=== PATIENT | male | born 2000 | race African-American/Black ===

== ENCOUNTER 2023-05-01 12:24 | Emergency (ER) | payer SELFPAY ==
--- OUTSIDE RECORDS SUMMARY | 2023-05-01 12:28 | XMS REPORT | Continuity of Care Document ---
:2000 Author Organization [facility] t Address [address] [facility] [address] [place] [address] Care Team Providers Name Role Phone CHUY SMITH Primary Care Physician Unavailable Eliud Guaman MD Attending Clinician ELIUD GUAMAN Attending Clinician Unavailable LEONARDO BAJWA Attending Clinician Unavailable Adolfo Portillo MD Attending Clinician Unknown, Attending Attending Clinician Unavailable Demar Sarmiento MD Attending Clinician RISSA LILLY Attending Clinician Unavailable LEONARDO BAJWA Admitting Clinician Unavailable Payers Payer Name Policy Type Policy Number Effective Date Expiration Date S ource MEDICAID COMM [id number] 2015 HEALTH CHOICE 00:00:00 [facility] [id number] 2021 CHOICE MEDICAID 00:00:00 Problems Condition Condition Condition Status Onset Resolution Last Treating Co mments Source Name Details Category Date Date Treatment Clinician Date Obesity Obesity Disease Active Univers (BMI (BMI 5-11 ity of 30-39.9) 30-39.9) 00:00: [place] [id number] Medical Branch Crush Crush Disease Active Univers injury of injury of 5-10 ity of foot, foot, 00:00: [place] right, right, 00 Medical initial initial Branch encounter encounter Allergies, Adverse Reactions, Alerts Allergy Allergy Status Severity Reaction(s) Onset Inactive Treating Comm ents Source Name Type Date Date Clinician No Known DA Active [facility] Allergie 01-25 Ubly s 00:00: [address] NO KNOWN Allergy Active [facility] ALLERGIE S NO KNOWN Drug Active Univers ALLERGIE Class ity of S [facility] Family History Family Member Diagnosis Comments Start Date Stop Date Source Natural mother Heart disease [facility] Natural mother Hypertension [facility] Social History Social Habit Start Date Stop Date Quantity Comments Source Sexual orientation [facility] Alcohol intake 2023-01-02 2023-01-02 Current [facility] es 00:00:00 00:00:00 non-drinker of Medical Ce nter alcohol (finding) History of Social 2023-01-02 2023-01-[address] [facility] function 00:[facility]00 [facility]00 [facility] Center Exposure to 2021-09-26 2021-10-06 Not sure University of SARS-CoV-2 (event) 00:00:00 14:36:00 [facility] Tobacco use and 2019-07-07 2019-07-07 Smokeless [facility]es exposure 00:00:00 00:00:00 tobacco non-user [facility] Sex Assigned At [address] [facility]es 00:00:00 00:00:00 Medical Center Smoking Status Start Date Stop Date Source Never smoked tobacco [facility] Medications Ordered Filled Start Stop Current Ordering Indication Dosage Frequency Signature Comments Components Source Medication Medication Date Date Medication? Clinician (SIG) Name Name amoxicillin 2022- No 1{tbl} Take [address] -clavulanat 01-02 tablet by Heidi kes e 00:00: 23:59 mouth Medical (AUGMENTIN) 00 :00 every 12 Cent er 875-125 mg (twelve) per tablet hours for 10 days. ibuprofen 2022-2022- No 800mg [id number] Take [address] (ADVIL,MOTR 01-02 [id number] tablet [facility] [place]) 800 MG 00:00: 23:59 3D (800 mg Med ical tablet 00 :00 total) by Center mouth 3 (three) times daily for 10 days. amoxicillin 2022-2022- No 1{tbl} Take [address] -clavulanat 01-02 tablet by Heidi kes e 00:00: 23:59 mouth Medical (AUGMENTIN) 00 :00 every 12 Cent er 875-125 mg (twelve) per tablet hours for 10 days. ibuprofen 2022-2022- No 800mg [id number] Take [address] (ADVIL,MOTR 01-02 [id number] tablet [facility] [place]) 800 MG 00:00: 23:59 3D (800 mg Med ical tablet 00 :00 total) by Center mouth 3 (three) times daily for 10 days. amoxicillin 2022- No 1{tbl} Take [address] -clavulanat 01-02 tablet by Heidi kes e 00:00: 23:59 mouth Medical (AUGMENTIN) 00 :00 every 12 Cent er 875-125 mg (twelve) per tablet hours for 10 days. ibuprofen 2022- No 800mg [id number] Take [address] (ADVIL,MOTR 01-0216 [id number] tablet [facility] [place]) 800 MG 00:00: 23:59 3D (800 mg Med ical tablet 00 :00 total) by Center mouth 3 (three) times daily for 10 days. colchicine 2021-0 Yes .6mg Take 0.6 Uni vers 0.6 mg Cap 5-13 mg by ity of 12:13: mouth [place] 52 every Medical morning. Branch indomethaci Yes 50mg Take 50 mg Univers n 50 mg 5-13 by mouth ity of capsule 12:13: every [place] 52 morning. Medical Branch losartan-hy 0 Yes 1{tbl} Take 1 Un wes drochloroth 5-13 tablet by ity of iazide 12:13: mouth [place] 50-12.5 mg 52 every Medical per tablet morning. Branc h amLODIPine 0 Yes 10mg Take 10 mg U nivers 10 mg 5-13 by mouth ity of tablet 12:13: every [place] 52 morning. Medical Branch acetaminoph 2021- No [id number] 650mg Take 2 Univers en 325 mg 5-13 05-24 tablets by ity of tablet 00:00: 04:59 mouth [place] 00 :00 every 6 Medical (six) Branch hours for 10 days. HYDROcodone 2021- No 4647 1{tbl} Take 1 U nivers -acetaminop 5-13 05-19 tablet by it y of hen 5-325 00:00: 04:59 mouth [place] mg tablet 00 :00 every 6 Medical (six) Branch hours as needed for Pain (scale 7-10) for up to 5 days. Indication s: acute pain indomethaci Yes 50mg 50 mg, Univ ers n (INDOCIN) 5-11 Oral, QAM, it y of capsule 50 14:00: First dose [place] mg 00 on Tue [facility] 10/07/21 at Branch 0900, Until Discontinu ed, Routine colchicine Yes .6mg 0.6 mg, Univ ers (COLCRYS) 5-11 Oral, ity of tablet 0.6 14:00: DAILY, [place] mg 00 First dose Medical on Tue [place] 10/07/21 at 0900, Until Discontinu ed amLODIPine Yes 10mg 10 mg, Unive rs (NORVASC) 5-11 Oral, QAM, ity of tablet 10 14:00: First dose [place] mg 00 on Tue [facility] 10/07/21 at Branch 0900, Until Discontinu ed, Routine pantoprazol Yes 40mg 40 mg, Univ ers e 5-11 Oral, ity of (PROTONIX) 14:00: DAILY, [place] EC tablet 00 First dose Medi caitlyn 40 mg on Tue [place] 10/07/21 at 0900, Until Discontinu ed, Routine enoxaparin 2022-0 Yes 40mg 40 mg, Unive rs (LOVENOX) 10-07 Subcutaneo ity of injection 14:00: us, DAILY, [place] 40 mg 00 First dose Medical on Tue Branch 10/07/21 at 0900, Until Discontinu ed, Routine D5W 0.45% 2021- No IV Univers NaCl 10-07 Infusion, ity of (1/2NS) 1 L 12:45: 18:43 at 125 [place] as + KCL 20 00 :07 mL/hr, Medical mEq CONTINUOUS Branch , Starting on Tue10/07/21 at 0745, Until Tue10/07/21 at 1343, Routine acetaminoph Yes 650mg 650 mg, Un wes en 10-07 Oral, Q6H, ity of (TYLENOL) 05:00: First dose [place] tablet 650 00 on Tue Medical mg 10/07/21 at Branch 0000, Until Discontinu ed, Routine ceFAZolin Yes 1000mg 1,000 mg, U nivers (ANCEF) 10-07 Intravenou ity of injection 03:30: s, Q8H [place] 1,000 mg 00 ABX, First Medic al dose on Branch Tue10/06/21 at 2230, Until Discontinu ed
Reas on for Anti-Infec tive: Empiric Therapy for Suspected Infection< br>Empiric Therapy Site: Skin / Soft tissue
Duration of therapy: 72 hours morpHINE (2021- No 4mg 4 mg, Slow Univers mg/mL) 10-07 IV Push, ity of injection 4 03:30: 03:48 ONCE, 1 [place] mg 00 :00 dose, On Medical Tue Branch 10/06/21 at 2230, Routine diphenhydrA Yes 25mg 25 mg, Univ ers MINE 10-07 Oral, ity of (BENADRYL) 02:13: Q6HPRN, [place] tablet 25 57 Starting Medica l mg on Tue Branch 10/06/21 at 2113, Until Discontinu ed, Routine, Itching morpHINE (4 2021- No 4mg 4 mg, Slow Univers mg/mL) 10-07 IV Push, ity of injection 4 02:12: 02:11 Q4HPRN, [place] mg 55 :55 Starting Medical on [facility] 10/06/21 at 211, Until Yane 10/08/21 at 2110, Routine, Pain (scale 7-10) HYDROcodone 0 Yes 1{tbl} 1 tablet, Univers -acetaminop 5-11 Oral, ity of hen (NORCO 02:12: Q4HPRN, [place] 5) 5-325 mg 51 Starting Medi caitlyn tablet 1 on [facility] tablet 10/06/21 at 2111, Until Discontinu ed, Routine, Pain (scale 4-6) ondansetron Yes 4mg 4 mg, Slow Univers (ZOFRAN 5-11 IV Push, ity of (PF)) 02:12: Q6HPRN, [place] injection 4 42 Starting Medi caitlyn mg on [facility] 10/06/21 at 2111, Until Discontinu ed, Routine, Nausea and Vomiting (N/V) morpHINE (4 2021- No 6mg 6 mg, Slow Univers mg/mL) 10-07 05-11 IV Push, ity of injection 6 01:15: 00:23 ONCE, 1 [place] mg 00 :00 dose, On [facility] 10/06/21 at 2015, STAT morpHINE (4 2021- No 4mg 4 mg, Slow Univers mg/mL) 10-06 05-10 IV Push, ity of injection 4 23:00: 22:37 ONCE, 1 [place] mg 00 :00 dose, On [facility] 10/06/21 at 1800, STAT ketorolac No 30mg 30 mg, Unive rs (TORADOL) 5 05-10 Slow IV ity of injection 22:15: 21:24 Push, [place] 30 mg 00 :00 ONCE, 1 Medical dose, On [facility] 10/06/21 at 1715, Routine
front desk team member approving Restricted medication : ADOLFO PORTILLO morpHINE (4 2021- No 8mg 8 mg, Slow Univers mg/mL) 5- 05-10 IV Push, ity of injection 8 22:00: 21:24 ONCE, 1 [place] mg 00 :[facility], [facility] 10/[facility]21 at 1700, STAT lactated 2021- No 1000mL at 999 Univ ers ringers IV 5-10 05-10 mL/hr, ity of infusion 21:15: 21:25 1,000 mL, [place] as 1,000 mL 00 :00 IV Medical Infusion, Branch ONCE, 1 dose, On 10/06/21 at 1615, Routine ceFAZolin 2021- No 2000mg 2 g (2,000 Univers in 0.9% 10-06 05-10 mg), ity of sodium 20:30: 20:50 Intravenou [place] chloride 00 :00 s, ONCE, 1 Medic al (ANCEF) 2 dose, On Branch gram/100 mL Tue RTU 2 g 10/06/21 at 1530, Administer over 30 Minutes
Reason for Anti-Infec tive: Empiric Non-Surgic al Prophylaxi s
Durat ion of therapy: 72 hours diph,pertus 2021- No .5mL 0.5 mL, Un wes (acel),teta - 05-10 Intramuscu i ty of nus 20:00: 20:03 lar, ONCE, [place] (ADACEL) 00 :00 1 dose, On Medic al injection e Branch 0.5 mL 10/06/21 at 1500, Routine morpHINE (2 2021- No 6mg 6 mg, Slow Univers mg/mL) 10-06 05-10 IV Push, ity of injection 6 20:00: 19:59 ONCE, 1 [place] mg 00 :00 dose, On Medical Tue Branch 10/06/21 at 1500, STAT indomethaci 2021-0 Yes 50mg Take [address] n (INDOCIN) 1-22 by mouth 2 [place] 50 MG 10:25: (two) Medical capsule 57 times Center daily with breakfast and dinner. indomethaci 2021-0 Yes 50mg Take [address] n (INDOCIN) 1-22 by mouth 2 [place] k[place] 50 MG 10:25: (two) Medical capsule 57 times Center daily with breakfast and dinner. indomethaci 2021-0 Yes 50mg Take [address] n (INDOCIN) 1-22 by mouth 2 [place] 50 MG 10:25: (two) Medical capsule 57 times Center daily with breakfast and dinner. methylPREDN [address] [facility] ISolone 1-22 package [facility] (MEDROL 00:00: directions Medi caitlyn DOSEPACK) 4 00 . Center mg tablet methylPREDN Yes follow [facility] ISolone 1-22 package [facility] (MEDROL 00:00: directions Medi caitlyn DOSEPACK) 4 00 . Center mg tablet methylPREDN Yes follow [facility] ISolone -22 package [facility] (MEDROL 00:00: directions Medi caitlyn DOSEPACK) 4 00 . Center mg tablet gabapentin Yes TK [address] [facility] (NEURONTIN) 1-23 Q 8 H [facility] 300 MG 00:00: Medical capsule 00 [place] traMADol Yes TK [address] (ULTRAM) 50 1-23 Q 6 H PRN Alex es mg tablet 00:00: P ON SCALE Me dical 00 1 TO 3 Center gabapentin Yes TK [address] [facility] (NEURONTIN) 1-23 Q 8 H [facility] 300 MG 00:00: Medical capsule 00 [place] traMADol Yes TK [address] (ULTRAM) 50 1-23 Q 6 H PRN Alex es mg tablet 00:00: P ON SCALE Me dical 00 1 TO 3 Center gabapentin Yes TK [address] [facility] (NEURONTIN) 1-23 Q 8 H [facility] 300 MG 00:00: Medical capsule 00 [place] traMADol Yes TK [address] (ULTRAM) 50 1-23 Q 6 H PRN Alex es mg tablet 00:00: P ON SCALE Me dical 00 1 TO 3 [place] amLODIPine 2018-05 Yes TK [address] (NORVASC) 2-02 QD [facility] 10 MG 00:00: Medical tablet 00 [place] omeprazole 2018-05 Yes TK [address] [facility] (PRILOSEC) 2-02 QD [facility] 20 MG 00:00: Medical capsule 00 [place] amLODIPine 2018-05 Yes TK [address] [facility] (NORVASC) 2 QD [facility] 10 MG 00:00: Medical tablet 00 [place] omeprazole 2018-05 Yes TK [address] [facility] (PRILOSEC) 2-02 QD [facility] 20 MG 00:00: Medical capsule 00 Center amLODIPine 2018-05 Yes TK [address] (NORVASC) 2- QD [facility] 10 MG 00:00: Medical tablet 00 Center omeprazole 2018-05 Yes TK [address] [facility] (PRILOSEC) 2- QD [facility] 20 MG 00:00: Medical capsule 00 Center Vital Signs Vital Name Observation Time Observation Value Comments Source WEIGHT 2023-01-02 15:06:00 122.018 kg HEIGHT 2023-01-02 15:06:00 180.3 cm WEIGHT 2023-01-02 15:06:00 122.018 kg HEIGHT 2023-01-02 15:06:00 180.3 cm WEIGHT 2023-01-02 15:06:00 122.018 kg HEIGHT 2023-01-02 15:06:00 180.3 cm Systolic blood 2021-10-09 16:18:00 140 mm[Hg] Univer sity [facility] Diastolic blood 2021-10-09 16:18:00 87 mm[Hg] Unive rsity [facility] Heart rate 2021-10-09 16:18:00 78 /min [facility] Body temperature 2021-10-09 16:18:00 36.72 [place] [facility] Respiratory rate 2021-10-09 16:18:00 20 /min [facility] Oxygen saturation in 2021-10-09 16:18:00 96 /min [facility] Arterial blood by [facility] Pulse oximetry [place] Body height 2021-10-07 04:42:00 180.3 cm [facility] Body weight 2021-10-07 04:42:00 123.378 kg [facility] BMI 2021-10-07 04:42:00 37.94 kg/m2 [facility] HEIGHT 2021-06-20 10:26:00 175.3 cm WEIGHT 2021-06-20 10:26:00 119.75 kg Systolic blood 2023-01-02 15:06:00 146 mm[Hg] [facility] Diastolic blood 2023-01-02 15:06:00 87 mm[Hg] [facility] Heart rate 2023-01-02 15:06:00 100 /min [facility] Body temperature 2023-01-02 15:06:00 36.72 C[place]ney [facility] Respiratory rate 2023-01-02 15:06:00 18 /min [facility] Body height 2023-01-02 15:06:00 180.3 cm [facility] Body weight 2023-01-02 15:06:00 122.018 kg [facility] BMI 2023-01-02 15:06:00 37.52 kg/m2 [facility] Oxygen saturation in 2023-01-02 15:06:00 99 /min [facility] Arterial blood by Medical Ce ntlakhwinder Pulse oximetry Procedures Procedure Date / Time Performed Performing Clinician [facility] e XR ANKLE 3+ VW RIGHT 2021-10-07 14:33:13 Miko [facility] PHOSPHORUS 2021-10-07 11:09:00 Enriqueta [facility] MAGNESIUM 2021-10-07 11:09:00 [facility]OL[facility]EL 2021-10-07 11:09:00 Enriqueta [facility] (NA, K, CL, CO2, [facility] GLUCOSE, BUN, CREATININE, CA) CBC WITH DIFF 2021-10-07 11:09:00 [facility] ASSIGNMENT OF BENEFITS 2021-10-06 23:30:55 Doctor Unassigned, Fabby [facility] XR ANKLE 3+ VW RIGHT 2021-10-06 20:06:31 Eugenia Dunn [facility] XR FOOT 3+ VW RIGHT 2021-10-06 20:06:12 Adolfo Portillo [facility] XR TIBIA FIBULA 2 VW 2021-10-06 20:05:[address] [facility] Plan of Care Planned Activity Planned Date Details Comments Source Future Scheduled 2031-10-07 DTAP/TDAP/TD VACCINES ([address] [facility] Test 00:00:00 - Td or Tdap) [code = Medica l Center DTAP/TDAP/TD VACCINES (2 - Td or Tdap)] Future Scheduled 2031-10-07 DTAP/TDAP/TD VACCINES ([address] [facility] Test 00:00:00 - Td or Tdap) [code = Medica l Center DTAP/TDAP/TD VACCINES (2 - Td or Tdap)] Future Scheduled 2031-10-07 DTAP/TDAP/TD VACCINES ([address] [facility] Test 00:00:00 - Td or Tdap) [code = Medica l Center DTAP/TDAP/TD VACCINES (2 - Td or Tdap)] Future Scheduled 2024-01-[address] [facility] Test 00:00:00 Counseling and Screening Med ical Center (12+) [code = Tobacco Cessation Counseling and Screening (12+)] Future Scheduled 2024-01-[address] [facility] Test 00:00:00 Counseling and Screening Med ical Center (12+) [code = Tobacco Cessation Counseling and Screening (12+)] Future Scheduled 2024-01-[address] [facility] Test 00:00:00 Counseling and Screening Med ical Center (12+) [code = Tobacco Cessation Counseling and Screening (12+)] Future Scheduled 2023-01-28 Influenza Vaccine (#1) [facility] Test 00:00:00 [code = Influenza Vaccine Me dical Center (#1)] Future Scheduled 2023-01-28 Influenza Vaccine (#1) [facility] Test 00:00:00 [code = Influenza Vaccine Me dical Center (#1)] Future Scheduled 2023-01-28 Influenza Vaccine (#1) [facility] Test 00:00:00 [code = Influenza Vaccine Me dical Center (#1)] Future Scheduled 2022-05-[address] [facility] Test 00:00:00 (12+) [code = DEPRESSION Med ical Center SCREENING (12+)] Future Scheduled 2022-05-[address] [facility] Test 00:00:00 (12+) [code = DEPRESSION Med ical Center SCREENING (12+)] Future Scheduled 2022-05-[address] [facility] Test 00:00:00 (12+) [code = DEPRESSION Med ical Center SCREENING (12+)] Future Scheduled 2020 Lipid panel (procedure) [facility] Test 00:00:00 [code = 16592186] Medical Ce nter Future Scheduled 2020 Lipid panel (procedure) [facility] Test 00:00:00 [code = 64568781] Medical Ce nter Future Scheduled 2020 Lipid panel (procedure) [facility] Test 00:00:00 [code = 66155323] Medical Ce nter Future Scheduled 2018 HEPATITIS C [facility]CRE[facility]ING [facility] Test 00:00:00 [code = HEPATITIS C Medical Center SCREENING] Future Scheduled 2018 HEPATITIS C [facility]CRE[facility]ING [facility] Test 00:00:00 [code = HEPATITIS C Medical Center SCREENING] Future Scheduled 2018 HEPATITIS C [facility]CRE[facility]ING [facility] Test 00:00:00 [code = HEPATITIS C Medical Center SCREENING] Future Scheduled 2015-12-[address] [facility] Test 00:00:00 virus screening Medical Cent er (procedure) [code = 531282480] Future Scheduled 2015-12-[address] [facility] Test 00:00:00 virus screening Medical Cent er (procedure) [code = 730836701] Future Scheduled 2015-12-[address] [facility] Test 00:00:00 virus screening Medical Cent er (procedure) [code = 242607622] Future Scheduled 2001-06-11 COVID-19 VACCINE (#1) [facility] 00:00:00 [code = COVID-19 VACCINE Med ical Center (#1)] Future Scheduled 2001-06-11 COVID-19 VACCINE (#1) [facility] Test 00:00:00 [code = COVID-19 VACCINE Med ical Center (#1)] Future Scheduled 2001-06-11 COVID-19 VACCINE (#1) [facility] 00:00:00 [code = COVID-19 VACCINE Med ical Center (#1)] Encounters Start End Encounter Admission Attending Care Care Encounter Source Date/Time Date/Time Type Type Clinicians Facility Department ID 2023-01-02 2023-01-02 [id number] 15:18:00 15:48:00 [facility] 2023-01-02 2023-01-02 Emergency [facility], [facility] [id number] 15:18:00 15:48:00 [facility] 2023-01-02 2023-01-02 Emergency ER [facility] Emergency [id number] SLE 15:18:00 15:48:00 [facility] 2023-01-02 2023-01-[address] [facility] [id number] [facility]00 [facility] 2023-01-02 2023-01-[address] [facility] [id number] [facility] 00[facility]00 [facility] 2022-03-05 2022-03-05 Emergency ER [facility] Emergency [id number] SLE 14:43:00 19:18:00 9 2021-10-06 2021-10-09 Outpatient X [facility] [id number] Univers 14:38:00 12:13:00 LEONARDO timothy [facility] 2021-10-06 2021-10-09 Emergency Adolfo Portillo [facility] [id number] Univers 14:38:00 12:13:00 Unknown, Attending HEALTH [id number] Demar Dailey [id number] [facility] [phone] [address] ([facility]) 2021-06-20 2021-06-20 Emergency ER [facility] Emergency [id number] SLE 10:21:00 10:42:00 RISSA Results Test Description Test Time Test Comments Results Result Comments Source Basic Metabolic Panel (NA, K, CL, CO2, GLUCOSE, BUN, 2021-09 12:07:00 CREATININE, CA) Test Item Value Reference Range Interpretation Comme nts NA (test code = 9126658298) 138 mmol/L 135-145 K (test code = 3601727042) 3.5 mmol/L 3.5-5.0 CL (test code = 5806942803) 103 mmol/L 98-108 CO2 TOTAL (test code = 25 mmol/L 23-31 1562229743) AGAP (test code = 4837863104) 2-16 BUN (test code = 1135711003) 12 mg/dL 7-23 GLUCOSE (test code = 7442764913) 109 mg/dL 70-110 CREATININE (test code = 1.22 mg/dL 0.60-1.25 2278810458) CALCIUM (test code = 4094302860) 8.8 mg/dL 8.6-10.6 eGFR (test code = 6237710330) mL/min/1.73m2 PETERSON (test code = PETERSON) Association of Glomerular Filtration Rate (GFR) and Staging of Kidney Disease* + +--------- + ----+| GFR (mL/min/1.73 m2) ?| With Kidney Damage ?| ?Without Kidney Damage+ +--- + +| ?>90 ?| ?Stage one ?| ? Normal ?+ +-------- + -----+| ?60-89 ?| ?Stage two ?| ? Decreased GFR ? + +--------- + ----+| ?30-59 ?| ?Stage three ?| ? Stage three ? + +--------- + ----+| ?15-29 ?| ?Stage four ? | ? Stage four ?+ +-------- + -----+| ?<15 (or dialysis) ? ?| ?Stage five ? | ? Stage five ?+ +-------- + -----+ *Each stage assumes the associated GFR level has been in effect for at least three months. ?Stages 1 to 5, with or without kidney disease, indicate chronic kidney disease. Notes: Determination of stages one and two (with eGFR >59mL/min/1.73 m2) requires estimation of kidney damage for at least three months as defined by structural or functional abnormalities of the kidney, manifested by either:Pathological abnormalities or Markers of kidney damage (including abnormalities in the composition of the blood or urine or abnormalities in imaging tests). [facility] [id number] 12:07:00 Test Item Value Reference Range Interpretation Comments MAGNESIUM (test code = 3081953091) 1.8 mg/dL 1.7-2.4 Lab Interpretation (test code = Normal 44499-7) [facility] [id number] 12:07:00 Test Item Value Reference Range Interpretation Comments PHOSPHORUS (test code = 5445311817) 5.9 mg/dL 2.5-5.0 H Lab Interpretation (test code = Abnormal 68651-6) [facility] with [id number] 11:43:55 Test Item Value Reference Range Interpretation Comments WBC (test code = See_Comment [Automated message] 6690-2) The system [employer] generated this result transmitted ref erence range: 4.20 - 1 0.70 10*3/?L. The re ference range was not u sed to interpret this result as normal/abnor mal. RBC (test code = See_Comment [Automated message] 789-8) The system [employer] generated this result transmitted ref erence range: 4.26 - 5 .52 10*6/?L. The re ference range was not u sed to interpret this result as normal/abnor mal. HGB (test code = 13.6 g/dL 12.2-16.4 718-7) HCT (test code = 39.5 % 38.4-49.3 4544-3) MCV (test code = 87.2 fL 81.7-95.6 787-2) MCH (test code = 30.0 pg 26.1-32.7 785-6) MCHC (test code = 34.4 g/dL 31.2-35.0 786-4) RDW-SD (test code 42.2 fL 38.5-51.6 = 29357-8) RDW-CV (test code 13.2 % 12.1-15.4 = 788-0) PLT (test code = See_Comment [Automated message] 777-3) The system [employer] generated this result transmitted ref erence range: 150 - 32 8 10*3/?L. The re ference range was not u sed to interpret this result as normal/abnor mal. MPV (test code = 11.9 fL 9.8-13.0 70274-1) NRBC/100 WBC (test See_Comment [Automat ed message] code = 0350946228) The syste m which generated this result transmitted ref erence range: 0.0 - 10 .0 /100 WBCs. The refer ence range was not u sed to interpret this result as normal/abnor mal. NRBC x10^3 (test <0.01 See_Comment [Automated message] code = 1143625448) The syste m which generated this result transmitted ref erence range: 10*3/?L. The reference range was not used to interpr et this result as normal/abnormal . GRAN MAT (NEUT) % 51.2 % (test code = 770-8) IMM GRAN % (test 0.10 % code = 8526920160) LYMPH % (test code 37.1 % = 736-9) MONO % (test code 7.4 % = 5905-5) EOS % (test code = 3.8 % 713-8) BASO % (test code 0.4 % = 706-2) GRAN MAT 4.19 10*3/uL 1.99-6.95 x10^3(ANC) (test code = 2307578096) IMM GRAN x10^3 <0.03 0.00-0.06 (test code = 8699441905) LYMPH x10^3 (test 3.04 10*3/uL 1.09-3.23 code = 731-0) MONO x10^3 (test 0.61 10*3/uL 0.36-1.02 code = 742-7) EOS x10^3 (test 0.31 10*3/uL 0.06-0.53 code = 711-2) BASO x10^3 (test 0.03 10*3/uL 0.01-0.09 code = 704-7) [facility] [facility]"
--- NOTE | 2023-05-01 12:33 | ER ---
Nurse's Notes [facility] Name: Johan Yoon Age: 22 yrs Sex: Male : 2000 Arrival Date: 05/01/2023 Time: 12:24 Bed Waiting Private MD: Diagnosis: Impacted cerumen, bilateral;Otalgia, left ear Presentation: 05/01 12:29 Chief complaint: Left ear pain since this morning. Coronavirus screen: At this time, hb the client does not indicate any symptoms associated with coronavirus-19. Ebola Screen: No symptoms or risks identified at this time. Initial Sepsis Screen: Does the patient meet any 2 criteria? No. Patient's initial sepsis screen is negative. Does the patient have a suspected source of infection? No. Patient's initial sepsis screen is negative. Risk Assessment: Do you want to hurt yourself or someone else? Patient reports no desire to harm self or others. Onset of symptoms was May 01, 2023. 12:29 Method Of Arrival: Ambulatory hb 12:29 Acuity: [place] 4 hb Triage Assessment: 12:30 General: Appears in no apparent distress. Behavior is calm, cooperative. Pain: Pain hb currently is 6 out of 10 on a pain scale. EENT: Reports left ear pain. Historical: - Allergies: 12:29 No Known Allergies; hb - PMHx: 12:29 Hypertension; Gout; DM2; hb - PSHx: 12:29 None; hb - Immunization history:: Adult Immunizations up to date. - Social history:: Smoking status: Patient denies any tobacco usage or history of. Screenin:31 [facility] ED Fall Risk Assessment (Adult) Score/Fall Risk Level 0 - 2 = Low Risk hb Oriented to surroundings, Maintained a safe environment, Educated pt \T\ family on fall prevention, incl call for assistance when getting out of bed. Abuse screen: Denies threats or abuse. Denies injuries from another. Nutritional screening: No deficits noted. Tuberculosis screening: No symptoms or risk factors identified. Assessment: 12:31 General: See triage assessment.. hb Vital Signs: 12:29 BP 156 / 90; Pulse 81; Resp 16; Temp 98.4(TE); Pulse Ox 98% on R/A; Weight 124.74 kg; hb Height 5 ft. 11 in. ; Pain 6/10; 12:29 Body Mass Index 38.35 (124.74 kg, 180.34 cm) hb 12:29 Pain Scale: Adult hb ED Course: 12:27 Patient arrived in ED. rg4 12:27 [facility] jh7 12:27 Marquis Amin MD is Attending Physician. jh7 12:30 Triage completed. hb 12:30 Arm band placed on. hb 12:31 Patient has correct armband on for positive identification. Provided Education on: . hb 12:31 No provider procedures requiring assistance completed. Patient did not have IV access hb during this emergency room visit. Administered Medications: No medications were administered Medication: 12:31 VIS not applicable for this client. hb Outcome: 12:33 Discharge ordered by . jh7 12:36 Discharged to home ambulatory, hb 12:36 Condition: stable 12:36 Discharge instructions given to patient, Instructed on discharge instructions, follow up and referral plans. medication usage, Demonstrated understanding of instructions, follow-up care, medications, Prescriptions given X 1, 12:37 Patient left the ED. hb Signatures: Brandie Olivo, RN RN Nelda Estrada rg4 Valerie Castanon FNP FNP [facility]
--- NOTE | 2023-05-01 12:33 | EDPHYS ---
Physician Documentation [facility] Name: Johan Yoon Age: 22 yrs Sex: Male : 2000 Arrival Date: 05/01/2023 Time: 12:24 Bed Waiting Private MD: ED Physician Marquis Amin HPI: 05/01 12:29 This 22 yrs old Black Male presents to ER via Ambulatory with complaints of Ear Pain. jh7 12:29 The patient presents with pain, that is acute. The complaints affect the left ear. jh7 Associated signs and symptoms: The patient has no apparent associated signs or symptoms. Historical: - Allergies: 12:29 No Known Allergies; hb - PMHx: 12:29 Hypertension; Gout; DM2; hb - PSHx: 12:29 None; hb - Immunization history:: Adult Immunizations up to date. - Social history:: Smoking status: Patient denies any tobacco usage or history of. ROS: 12:29 Constitutional: Negative for fever, chills, and weight loss, Neck: Negative for injury, jh7 pain, and swelling, Cardiovascular: Negative for chest pain, palpitations, and edema, Respiratory: Negative for shortness of breath, cough, wheezing, and pleuritic chest pain, Abdomen/GI: Negative for abdominal pain, nausea, vomiting, diarrhea, and constipation, MS/Extremity: Negative for injury and deformity, Skin: Negative for injury, rash, and discoloration, Neuro: Negative for headache, weakness, numbness, tingling, and seizure, 12:29 ENT: Positive for ear pain, Negative for drainage from ear(s), 12:29 All other systems are negative, Exam: 12:29 Constitutional: This is a well developed, well nourished patient who is awake, alert, jh7 and in no acute distress. Head/Face: Normocephalic, atraumatic. Neck: Trachea midline, no thyromegaly or masses palpated, and no cervical lymphadenopathy. Supple, full range of motion without nuchal rigidity, or vertebral point tenderness. No Meningismus. Cardiovascular: Regular rate and rhythm with a normal S1 and S2. No gallops, murmurs, or rubs. Normal PMI, no JVD. No pulse deficits. Respiratory: Lungs have equal breath sounds bilaterally, clear to auscultation and percussion. No rales, rhonchi or wheezes noted. No increased work of breathing, no retractions or nasal flaring. Back: No spinal tenderness. No costovertebral tenderness. Full range of motion. Skin: Warm, dry with normal turgor. Normal color with no rashes, no lesions, and no evidence of cellulitis. MS/ Extremity: Pulses equal, no cyanosis. Neurovascular intact. Full, normal range of motion. Neuro: Awake and alert, GCS 15, oriented to person, place, time, and situation. Motor strength 5/5 in all extremities. Sensory grossly intact. Normal gait. 12:29 ENT: External ear(s): are unremarkable, Ear canal(s): cerumen impaction, that is severe, bilaterally, TM's: not visable, because of cerumen, Vital Signs: 12:29 BP 156 / 90; Pulse 81; Resp 16; Temp 98.4(TE); Pulse Ox 98% on R/A; Weight 124.74 kg; hb Height 5 ft. 11 in. ; Pain 6/10; 12:29 Body Mass Index 38.35 (124.74 kg, 180.34 cm) hb 12:29 Pain Scale: Adult hb MDM: 12:27 Patient medically screened. [facility] 12:29 Differential diagnosis: otitis media, acute otalgia, cerumen impaction. Data reviewed: [facility] vital signs, nurses notes. Care significantly affected by the following chronic conditions: Hypertension. Counseling: I had a detailed discussion with the patient and/or guardian regarding the historical points, exam findings, and any diagnostic results supporting the discharge/admit diagnosis, to return to the emergency department if symptoms worsen or persist or if there are any questions or concerns that arise at home. Special discussion: Unable to visualize TM due to cerumen impaction. Will give antibiotics as a contingency, patient will follow-up with the ENT for wax removal.. Administered Medications: No medications were administered Disposition Summary: 05/01/23 12:33 Discharge Ordered Notes: Location: Home [facility] Problem: new [facility] Symptoms: are unchanged [facility] Condition: Stable [facility] Diagnosis - Impacted cerumen, bilateral [facility] - Otalgia, left ear [facility] Followup: [facility] - With: Private Physician - When: 2 - 3 days - Reason: Recheck today's complaints Discharge Instructions: - Discharge Summary Sheet jh7 - Earwax Buildup, Adult [facility] - Earache, Adult [facility] Forms: - Medication Reconciliation Form [facility] - Thank You Letter [facility] - Antibiotic Education [facility] - Patient Portal Instructions [facility] - Leadership Thank You Letter [facility] Prescriptions: - Amoxicillin 875 mg Oral Tablet - take 1 tablet ORAL route every 12 hours for 10 days; 20 tablet; Refills: 0, jh7 Product Selection Permitted Signatures: Brandie Olivo, RN RN Valerie Guerrero, UTILIZATION MANAGEMENT RN UTILIZATION MANAGEMENT RN [facility]
[2023-05-01 12:42] VITALS: BP 156/90; TEMP 98.4; O2SAT 98
== END 2023-05-01 12:37 | disposition home or self-care (01) ==
LOC: ER 12:24
DX: H61.23 Impacted cerumen, bilateral (principal)
CPT/HCPCS: 99283